=== PATIENT | female | born 1945 | race Caucasian/White ===

== ENCOUNTER 2018-06-10 11:17 | Emergency (ER) | payer MEDICARE, BC ==
[2018-06-10] MEDS ORDERED: Oxymetazoline HCl 0.05% ( 15 ML ) ONE (12:13)
== END 2018-06-10 12:50 | disposition home or self-care (01) ==
LOC: ERS 11:17
DX: R04.0 Epistaxis (principal); F41.9 Anxiety disorder, unspecified; F32.9 Major depressive disorder, single episode, unspecified; E03.9 Hypothyroidism, unspecified; I10 Essential (primary) hypertension; Z79.899 Other long term (current) drug therapy
CPT/HCPCS: 99283

== ENCOUNTER 2023-08-07 05:56 | Day surgery (SDC) | payer MEDICARE, BC ==
[2023-06-30 15:38] VITALS: BMI 34.0
[2023-08-07] MEDS ORDERED: Heparin 5,000 UNITS/ML VIAL ONE (06:16)
[2023-08-07] MEDS ORDERED: CEFAZOLIN 2 GM VIAL ONE (06:17)
[2023-08-07] MEDS ORDERED: Sodium Chloride 0.9% 100 ML ONE (06:17)
[2023-08-07] MEDS ORDERED: EPINEPHrine 1 MG/ML VIAL ONE (07:07)
[2023-08-07] MEDS ORDERED: Bupivacaine 0.25% HCL 30 ML VIAL ONE (07:08)
[2023-08-07] MEDS ORDERED: Midazolam HCl 2 mg/2 ml Vial ONE (07:34)
[2023-08-07] MEDS ORDERED: Ondansetron PF 4 MG/2 ML Vial ONE (07:39)
[2023-08-07] MEDS ORDERED: PROPOFOL 20 ML ONE (07:39)
[2023-08-07] MEDS ORDERED: fentaNYL 50 mcg/mL 1 mL Vial ONE ×2 (07:39→11:42)
[2023-08-07] MEDS ORDERED: Lidocaine 1% PF 5 ML VIAL ONE (07:39)
[2023-08-07] MEDS ORDERED: Dexamethasone 20 MG/5 ML VIAL ONE (07:40)
[2023-08-07] MEDS ORDERED: Rocuronium Bromide 10 MG/ML (10ML VIAL) ONE (08:06)
[2023-08-07] MEDS ORDERED: MINERAL OIL/WHITE PETROLATUM 3.5 GM TUBE ONE (09:12)
[2023-08-07] MEDS ORDERED: Bacitracin Zinc Ointment 30 gm TUBE ONE (10:28)
[2023-08-07] MEDS ORDERED: NEOSTIGMINE 3 MG/3 ML SYR 3 MG/3 ML SYRINGE ONE (10:55)
[2023-08-07] MEDS ORDERED: Glycopyrrolate 0.2 MG/ML 5 ML SYRINGE ONE (10:55)
[2023-08-07] MEDS ORDERED: SUGAMMADEX SODIUM 200 MG/2 ML VIAL ONE (11:06)
[2023-08-07] MEDS ORDERED: HYDROcodone/Acetaminophen 5/325 mg Tablet ONE (12:51)
== END 2023-08-07 13:45 | disposition home or self-care (01) ==
LOC: SDC 05:56
PROVIDERS: ATTEND Plastic Surgery
PROC: 0HR1XK3 Replacement of Face Skin with Nonautologous Tissue Substitute, Full Thickness, External Approach (ICD-10-PCS; principal; 2023-08-07)
PROC: 08RRX7Z Replacement of Left Lower Eyelid with Autologous Tissue Substitute, External Approach (ICD-10-PCS; 2023-08-07)
DX: C44.1291 Squamous cell carcinoma of skin of left upper eyelid, including canthus (principal); C44.311 Basal cell carcinoma of skin of nose
CPT/HCPCS: 11642; 13133; 15260; 15731; 93005; J0171; J3010; 88305; 88331; 88332; 88341; 88342; 93010; J0665; J1100; J1644; J2250; J2405; J2704; J3490